=== PATIENT | male | born 1990 | race Two or more races ===

== ENCOUNTER 2017-08-07 11:48 | Inpatient (IN) | payer OTHER ==
[~2017-08-07] VITALS: Ht 165.1 cm; Wt 90.7 kg
--- NOTE | ~2017-08-07 | CR72 ---
[facility] A Service of [facility] RADIOLOGY TEXT RESULTS PATIENT: TOBI BROWN LOCATION: [facility] : [birth year] UNIT #: [id number] AGE: [address]: Sandi Whitt MD SEX: M ORDER DR: [id number] [place] [id number] [facility]. [place], [place] [address] [id number] MR#: [id number] Acc #: [id number] NAME: TOBI BROWN : 1990 SEX: M STUDY DATE/TIME: 08/09/2017 8:31 UNIT: [facility] ROOM: [facility] STUDY DESCRIPTION: CR Chest Single View Portable Attending Physician: Sandi Whitt M.D. Ordering Physician: Sandi Whitt M.D. Primary Care Physician: Primary Care Physician No MEDICAL IMAGING REPORT This report is preliminary unless electronic signature is present EXAM Chest x-ray, 08/09/2017 HISTORY 27-year-old male admitted to the hospital 08/07/2017 with epigastric abdomen pain, nausea and vomiting. Acute pancreatitis. Now with some shortness of air. TECHNIQUE AP portable chest x-ray FINDINGS The examination shows shallow lung expansion with new or increasing infiltrate or atelectasis in the dependent lung bases when compared with the CT examination of 08/07/2017. Mid and upper lungs remain clear. Mild cardiomegaly. Pulmonary vascularity is normal. No visible pleural effusion. IMPRESSION Shallow lung expansion with mild infiltrate or atelectasis in the dependent posterior lung bases. Dictated by... Branden Garcia M.D. THIS IS AN ELECTRONICALLY VERIFIED REPORT Branden Garcia M.D. at 08/09/2017 3:39 PM AYALA/alfonzo TD: 08/09/2017 13:03 JOB #: [id number] MEDICAL IMAGING REPORT [facility] A Service of [facility] RADIOLOGY TEXT RESULTS PATIENT: TOBI BROWN LOCATION: [facility] 01 : [birth year] UNIT #: [id number] AGE: [address]: Sandi Whitt MD SEX: M ORDER DR: Page 1 of 1 COPY
--- NOTE | ~2017-08-07 | US6 ---
[facility] A Service of [facility] RADIOLOGY TEXT RESULTS PATIENT: TOBI BROWN LOCATION: A 221-01 : [birth year] UNIT #: [id number] AGE: [address]: Sandi Whitt MD SEX: M ORDER DR: [id number] [facility] [address] [facility]. [place], [place] [address] [id number] MR#: [id number] Acc #: [id number] NAME: TOBI BROWN : 1990 SEX: M STUDY DATE/TIME: 08/08/2017 8:56 UNIT: [facility] ROOM: [facility] STUDY DESCRIPTION: US Abdominal Limited Attending Physician: Sandi Whitt M.D. Ordering Physician: Sandi Whitt M.D. Primary Care Physician: No Primary Care Physician MEDICAL IMAGING REPORT This report is preliminary unless electronic signature is present EXAM Right upper quadrant abdominal ultrasound. INDICATIONS Generalized abdominal pain today. PROCEDURE Conde-scale and Doppler imaging of the right upper quadrant of the abdomen. COMPARISON CT from 08/07/2017. FINDINGS Pancreas is obscured by bowel gas and not well seen. Liver shows diffusely increased echotexture. Trace amount of perihepatic ascites. Unremarkable gallbladder. Common duct measures 5 mm. Right kidney measures 11.3 cm. Common duct measures up to 10 mm. IMPRESSION 1. Hepatic steatosis. Trace amount of perihepatic fluid. 2. The pancreas is not well seen on the study. 3. Common duct is prominent for the patient's age. This is not as noticeable on the CT from the previous day and may be artifactually elevated. Correlate with laboratory values. If there is concern, MRCP or ERCP may be helpful. Dictated by... Feliz Fuentes M.D. THIS IS AN ELECTRONICALLY VERIFIED REPORT Feliz Fuentes M.D. at 08/09/2017 7:02 AM FERNANDO/an [facility] A Service [facility] RADIOLOGY TEXT RESULTS PATIENT: TOBI BROWN LOCATION: [facility] 221-01 : [birth year] UNIT #: [id number] AGE: [address]: Sandi Whitt MD SEX: M ORDER DR: TD: 08/08/2017 15:50 JOB #: [id number] MEDICAL IMAGING REPORT Page 1 of 1 COPY
--- NOTE | ~2017-08-07 | CT2 ---
[facility] A Service of [facility] & [facility] RADIOLOGY TEXT RESULTS PATIENT: TOBI BROWN LOCATION: C2A 221-01 : [birth year] UNIT #: [id number] AGE: [address]: Sandi Whitt MD SEX: M ORDER DR: [id number] [facility] [address] [facility]. [place], [place] [address] [id number] MR#: [id number] Acc #: [id number] NAME: TOBI BROWN : 1990 SEX: M STUDY DATE/TIME: 08/10/2017 14:41 UNIT: C2A ROOM: 221 STUDY DESCRIPTION: CT Abd and Pelv W Cont Attending Physician: Sandi Whitt M.D. Ordering Physician: Sandi Whitt M.D. Primary Care Physician: Primary Care Physician No MEDICAL IMAGING REPORT This report is preliminary unless electronic signature is present EXAM CT abdomen and pelvis with IV contrast HISTORY Epigastric pain. Pancreatitis. Symptoms for [address] abdomen and pelvis was performed with IV contrast and is compared to CT 08/07/2017. This CT exam was performed with one or more of the following radiation dose reduction techniques: automatic control, adjustment of mA and/or kV according to patient size, and iterative reconstruction. CT ABDOMEN: New small bilateral pleural effusions and kuoo-yl-pftzsxzw atelectasis in the lung bases bilaterally. Diffuse fatty infiltration of the liver. Increased moderate to moderately extensive peripancreatic stranding and increased small amount of ascites in the abdomen bilaterally. New fluid collection along the left lateral margin of the stomach, measuring close to 10 cm x 4.5 cm. Hypoenhancing pancreatic parenchyma in the distal pancreatic body and neck, more conspicuous than on the prior study, likely pancreatic necrosis. Findings are characteristic of progressive acute pancreatitis. Increased small amount of perihepatic fluid and fluid in the pericolic gutters bilaterally. No hepatic mass. No biliary dilatation. Probable excreted contrast in the gallbladder. The spleen, kidneys, and adrenal glands are normal. Normal caliber abdominal aorta. CT PELVIS: Small amount of pelvic ascites has increased slightly since the prior study. Mild dilatation of several loops of small bowel in the right lower abdomen and right pelvis, suggesting mild ileus. Urinary bladder is normal. Prostate gland is unremarkable. IMPRESSION 1. Progressive acute pancreatitis compared to 08/07/2017. Increased STS. [facility] A Service of [facility] & [facility] RADIOLOGY TEXT RESULTS PATIENT: TOBI BROWN LOCATION: [facility] 221-01 : [birth year] UNIT #: [id number] AGE: [address]: Sandi Whitt MD SEX: M ORDER DR: peripancreatic stranding and increased fluid in the abdomen and pelvis. Probable focal pancreatic necrosis in the distal pancreatic body and neck is more conspicuous than on the prior study. No pancreatic ductal dilatation. 2. Probable partly loculated new fluid collection along the left lateral margin of the stomach measures close to 10 cm x 4.5 cm. 3. Mild dilatation of small bowel in the right lower quadrant and in the pelvis suggesting mild ileus. 4. Fatty infiltration of the liver. 5. New small bilateral pleural effusions and opdt-jw-ihowlvfn atelectasis in the inferior lower lobes bilaterally. Dictated by... Gera Calabrese M.D. THIS IS AN ELECTRONICALLY VERIFIED REPORT Gera Calabrese M.D. at 08/11/2017 10:02 PM MELISSA/aleks TD: 08/11/2017 01:47 JOB #: [id number] MEDICAL IMAGING REPORT Page 1 of 1 COPY
--- NOTE | ~2017-08-07 | HP ---
Unit #: [id number] #: [id number] Patient: TOBI TRACY [id number] [address] [place], [place] [address] [id number] I MR#: [id number] NAME: TOBI TRACY ROOM: 83334 Age: 27 Sex: M Admission Date: 08/07/2017 : 1990 Attending Physician: Sandi Whitt M.D. HISTORY AND PHYSICAL CHIEF COMPLAINT Epigastric pain. HISTORY OF PRESENT ILLNESS Mr. Tracy is a nice male 27 years old who presents to the ER for above. Patient states that he developed acute onset of epigastric pain approximately two hours prior to presentation this evening. He describes the pain is significantly sharp, stabby, throbby, and actually is worse in the epigastric region but radiates down his entire abdomen. This has been associated with several episodes of nonbloody emesis but no diarrhea. He denies any fever. He denies any similar symptoms in the past and has felt well up until today. No sick contacts. When he presented to the emergency department, patient was febrile. Examination revealed significant tenderness to palpation in the epigastric region. Blood work revealed an elevated lipase of approximately 1300 in association with some transaminitis. A CT scan of the abdomen and pelvis with moderate to severe acute pancreatitis with fluid adjacent in the duodenal region that is felt to be reactive. There is also fluid in the pancreatic head. No evidence of pseudocyst. Fatty liver and hepatomegaly were also noted. Patient was given several doses of morphine, Dilaudid, Protonix, one liter of normal saline, Reglan, and Zofran in the emergency department and is being referred for admission. He is still having a lot of abdominal pain. He is also complaining of some dysuria but denies any hematuria. He has not had any recent new sexual contacts and denies any penile discharge. PAST MEDICAL HISTORY Negative. PAST SURGICAL HISTORY Negative. HOME MEDICATIONS None. ALLERGIES No known drug allergies. FAMILY HISTORY Some joint pain but is otherwise unremarkable. SOCIAL HISTORY Patient does not smoke. He drinks alcohol only socially and states his last drink was yesterday. He works at [employer]. Unit #: [id number] #: [id number] Patient: TOBI TRACY REVIEW OF SYSTEMS Still having abdominal pain. No further nausea or vomiting. Never had any diarrhea. Denies any melena or hematochezia. Has not had any chest pain. Has not had any shortness of breath, no fever, no vision change. Is having dysuria that is new. No recent falls. No recent rashes. PHYSICAL EXAMINATION VITAL SIGNS: Temperature 97.5, blood pressure 134/85, pulse rate 84, respiratory rate 16, oxygen saturation is 97% on room air. GENERAL: The patient is awake and alert. He is oriented x3 and very pleasant. Mexican speaking only. HEENT: Pupils equally round and reactive to light bilaterally. Anicteric sclerae. No conjunctival pallor. Oropharynx with slightly dry mucous membranes. No erythema or exudate. NECK: Supple. No lymphadenopathy. No thyromegaly. No JVD. HEART: Regular rate and rhythm without any murmur, rub, or gallop. LUNGS: Clear to auscultation bilaterally. ABDOMEN: Mildly firm. It is distended. It is diffusely tender but greatest in the epigastric region without any guarding or rebound. EXTREMITIES: No cyanosis, clubbing, or edema. Pedal pulses 2/4. SKIN: Warm and moist without rash. NEUROLOGIC: Cranial nerves II-XII are intact. Sensation, strength, and deep tendon reflexes are all normal. MUSCULOSKELETAL: No significant joint abnormalities noted upon examination, i.e., no joint hypertrophy and no joint erythema. PSYCHIATRIC: Alert and oriented x3. No suicidal or homicidal ideation. DIAGNOSTIC STUDIES LABORATORY: Lab work done in the emergency department revealed a sodium of 137, potassium 3.1, chloride 101, bicarb 19, BUN 13, creatinine 0.8, glucose of 199. AST is elevated at 105, ALT 173, alkaline phosphatase 108. Last bilirubin was normal. Lipase is elevated 1288 and amylase 608. Anion gap is 17. CBC reveals a white blood cell count of 16.5, hemoglobin 18.2, platelet count of 325,000. Differential reveals 3% bands. Urinalysis has 1+ protein and 5-10 hyaline cells but is otherwise unremarkable. IMAGING: KUB reveals asymmetric density at the left lung base compared to right. CT scan of the abdomen and pelvis as noted above reveals moderate to severe acute pancreatitis in the pancreatic head and body. There was a free fluid collection noted around the head but no pancreatic pseudocyst. There was some edema surrounding the duodenum and the hepatic flexure but this was felt to be reactive. Fatty liver and hepatomegaly noted. ASSESSMENT 1. Acute pancreatitis of uncertain etiology. 2. Metabolic acidosis. 3. Hypokalemia. 4. Hyperglycemia. 5. Polycythemia. 6. Hepatic steatosis. 7. Transaminitis, likely reactive. PLAN 1. Will admit patient to inpatient status on med/surg. 2. I am going to start patient on IV fluids D5 normal saline with 20 of KCl at 150 mL/hour. Will provide morphine and Zofran and will Unit #: [id number] #: [id number] Patient: TOBI TRACY recheck lipase in the morning. I will also go ahead and check a right upper quadrant ultrasound in the morning to further rule out any sort of underlying gallbladder etiology. A fasting lipid panel in the morning as well. Calcium levels appear normal. 3. Check an alcohol level off blood in lab as well. 4. In regards to patient's metabolic acidosis, I suspect perhaps this is starvation versus alcoholic, but I am going to check a serum lactic acid, in addition to a beta hydroxybutyrate, and follow up accordingly. 5. In regards to patient's hyperglycemia, again, I am going to keep him on IV fluids containing D5, but I am going to do Accu-Cheks every six hours with associated low-dose NovoLog sliding scale and check a hemoglobin A1c off blood in lab. If sugars become too elevated, will appropriately adjust IV fluids. 6. Will replace potassium in IV fluids. Will also place patient on (1) protocol as well. 7. Will follow up LFTs in the morning, but I anticipate that these will improve. 8. Will follow up polycythemia in the morning as well. I suspect this is somewhat dehydration related. 9. Will follow up mild leukocytosis in the morning (2) I suspect this is reactive. 10. DVT and GI prophylaxis with Lovenox and Protonix. 1. Dictated by Sandi Whitt M.D. PADMA/lucila TD: 08/07/2017 20:43 JOB #: [id number] HISTORY AND PHYSICAL Page 1 of 1 X Sandi Whitt MD X HISTORY AND PHYSICAL
--- NOTE | ~2017-08-07 | TOC ---
Unit #: [id number] #: [id number] Patient: TOBI TRACY [id number] [address] [address] [id number] I MR#: [id number] NAME: TOBI TRACY ROOM: 221 Age: 27 Sex: M Admission Date: 08/07/2017 : 1990 Attending Physician: Sandi Whitt M.D. Primary Care Physician: No Primary Care Physician TRANSFER OF CARE SUMMARY PRINCIPAL DIAGNOSES 1. Systemic inflammatory response syndrome secondary to acute alcoholic pancreatitis. 2. Dyspnea secondary to severe abdominal distention. 3. Severe lactic acidosis secondary to pancreatitis, now resolved. 4. Polycythemia secondary to dehydration, now resolved. 5. Hyponatremia. 6. Probable alcoholic transaminitis, now resolved. 7. Hepatic steatosis. 8. Hyperlipidemia. 9. Moderate protein malnutrition. 10. Constipation. CONSULTANTS None. PROCEDURES IMAGING: CT scan of abdomen and pelvis with contrast on August 07, 2017 with nnthphpa-qi-gpuaek acute pancreatitis. Enhancement of the pancreas in the head and body noted. Extensive adjacent inflammatory change anteriorly and inferiorly. Inflammatory change in the duodenum and hepatitic flexure secondary to pancreatitis. Diffuse fatty infiltration of liver noted. Some areas of parenchymal sparing noted. Mild bilateral symmetric gynecomastia. Patchy densities smhp-uzfdngx-skud-right lobe. Right upper quadrant ultrasound on August 08, 2017 with hepatic steatosis. Common bile duct was prominent for age but no evidence of stones. Chest x-ray on August 09, 2017 with shallow breathing. CLINICAL HISTORY AND HOSPITAL COURSE Mr. Tracy is a nice 27-year-old male who presents to the emergency department with complaints of abdominal pain. Please refer to H and P for further details. In the emergency department he underwent CT scan revealing significant acute pancreatitis. Lipase was elevated at approximately 1,300 upon presentation. Patient was subsequently admitted. Patient was made NPO, placed on antiemetics, IV fluids and pain medication. He was soon started on clears, which he was able to tolerate and is now tolerating a full liquid diet. At time of dictation lipase is now down to 79. Workup for secondary cause of pancreatitis revealed some mild hyperlipidemia and mildly elevated triglycerides at 226. However, I doubt that this is likely source of pancreatitis. He does drink alcohol on Unit #: [id number] #: [id number] Patient: TOBI TRACY a social basis and was drinking the day prior to presentation. My clinical suspicion, given his hepatic steatosis and fatty liver, is that this is likely alcohol related, and we have discussed alcohol cessation. Plan is to increase the diet in the morning. Patient did receive aggressive IV hydration in regards to his pancreatitis. He subsequently began becoming mildly tachypneic and dyspneic. Chest x-ray was unremarkable, and he did have a mild amount of wheezing upon examination. He has been given DuoNebs and a few doses of Lasix to decrease his associated abdominal distention from his pancreatitis. This seems to be improving his symptoms, and we will continue to monitor this closely. He is currently off IV fluids. Today, patient is also mildly hyponatremic, but clinically he appears hypervolemic. Will continue with diuretics and will follow up sodium closely. Urine sodium is currently pending. I anticipate discharge within the next 24 to [address] will repeat CT scan of the abdomen and pelvis to ensure we are not missing anything in regards to his pancreatitis. Further hospital course will be dictated as an addendum. Dictated by... Sandi Whitt M.D. PADMA/sly TD: 08/13/2017 10:16 JOB #: [id number] TRANSFER OF CARE SUMMARY Page 1 of 1 X Sandi Whitt MD TRANSFER OF CARE SUMMARY
--- NOTE | ~2017-08-07 | CT2 ---
[facility] A Service of [facility] & [facility] RADIOLOGY TEXT RESULTS PATIENT: TOBI BROWN LOCATION: C2A 221-01 : [birth year] UNIT #: [id number] AGE: [address]: Sandi Whitt MD SEX: M ORDER DR: [id number] [facility] [address] [place], [place] [address] [id number] I MR#: [id number] Acc #: [id number] NAME: TOIB BROWN : 1990 SEX: M STUDY DATE/TIME: 08/07/2017 16:00 UNIT: [facility] ROOM: 221 STUDY DESCRIPTION: CT Abd and Pelv W Cont Attending Physician: Sandi Whitt M.D. Ordering Physician: Coleman Watson M.D. Primary Care Physician: Primary Care Physician No MEDICAL IMAGING REPORT This report is preliminary unless electronic signature is present EXAM CT abdomen and pelvis 08/07/2017 HISTORY Abdomen pain epigastric area with nausea and vomiting since this a.m. Right lower quadrant tenderness. Prior history of gastritis. CT abdomen and pelvis performed with 1 mL Isovue-370. Enteric contrast not administered. There is mild cardiac enlargement. Patchy densities in the bilateral lung bases probably atelectatic in nature. Components of mild pneumonitis might be considered. There is no dense airspace disease. Bilateral gynecomastia. Diffuse fatty infiltration of the liver. The liver is enlarged measuring 21.5 cm in craniocaudal extent. There is some spared hepatic parenchyma in segment 3 and along the gallbladder fossa. Gallbladder unremarkable. No gallstones, biliary obstruction or choledocholithiasis. Spleen unremarkable. Pancreas is abnormal. There is relative hypodensity in the pancreatic body and head. Inflammatory change adjacent to the pancreas, predominately along the anterior inferior aspect of the pancreatic head uncinate process and pancreatic body. There is inflammatory fat stranding and haziness. There is a small amount of fluid adjacent to the pancreatic head. Fluid tracks along the anterior pararenal fascia and into the right pericolic gutter. Fluid then tracks into the pelvis. There is fluid tracking along the left anterior pararenal fascia, left pericolic gutter and into the pelvis as well. Small volume of free fluid in the pelvis. Probably not a drainable fluid collection at this time. No organized fluid collection is seen. There is no evidence of pseudocyst or abscess at this time. The hypodensity in the pancreatic body and head, likely reflects inflammatory edema. There is some degree of enhancement remaining and I do not believe that there is hepatic necrosis. Attention at followup recommended. The adrenal glands, kidneys, ureters unremarkable. [facility] A Service of [facility] RADIOLOGY TEXT RESULTS PATIENT: TOBI BROWN LOCATION: C2A 221-01 : [birth year] UNIT #: [id number] AGE: [address]: Sandi Whitt MD SEX: M ORDER DR: CT Pelvis: No inguinal adenopathy. Urinary bladder unremarkable. No pelvic or retroperitoneal adenopathy. Distal esophagus, stomach unremarkable. Inflammatory change adjacent to the duodenum is felt secondary to the primary pancreatic process. The duodenal wall is not thickened. Remainder small bowel unremarkable. There is some fluid in the small bowel mesenteric and adjacent to the spleen. The appendix is normal. There is some inflammatory change in the right upper quadrant adjacent to the hepatic flexure of colon but again I favor this is related to the pancreatitis. Distal colon unremarkable. The vascular structures appear normal in caliber. Portal vein and its major tributaries are patent. The bony structures show no acute abnormality. IMPRESSION 1. Abnormal examination. See complete dictation above. Findings most consistent with moderate to severe acute pancreatitis. There is enhancement of the pancreas but is relatively diminished in the body and head with loss of intrapancreatic fat planes and evidence of overall edema. There is no ductal dilatation. There is extensive adjacent inflammatory change in this region extending anteriorly and inferiorly with fluid adjacent to the pancreatic head and the inferior surface of the pancreatic body extending along the bilateral anterior pararenal fascia into the bilateral pericolic gutters and vents into the pelvis. There is a small to moderate volume of free fluid in the deep pelvis probably not a drainable fluid collection. No organized appearing fluid collection is seen. No indication of abscess or pseudocyst. Cause for pancreatitis unclear. No ductal obstructing process is seen. 2. Inflammatory change adjacent to the duodenum and hepatic flexure of colon favored to be related to the pancreatitis. The duodenum itself and the hepatic flexure of colon appear intrinsically unremarkable. 3. Diffuse fatty infiltration of the liver. There are some focal areas of parenchymal sparing. No suspicious focal abnormality. Liver is enlarged at 21.5 cm craniocaudal extent. 4. Gallbladder and visualized biliary tree unremarkable. 5. Mild bilateral symmetric gynecomastia. 6. Kidneys and appendix normal. 7. Mild cardiac enlargement. 8. Patchy densities bilateral lung bases left greater than right probably atelectatic in nature. Correlate with any clinical concern for mild bibasilar pneumonitis. Dictated by... Jeff Stone M.D. THIS IS AN ELECTRONICALLY VERIFIED REPORT Jeff Stone M.D. at 08/08/2017 2:25 PM [facility] A Service of [facility] & [facility] RADIOLOGY TEXT RESULTS PATIENT: TOBI BROWN LOCATION: [place] [address] : [birth year] UNIT #: [id number] AGE: [address]: Sandi Whitt MD SEX: M ORDER DR: GREOGR/toni TD: 08/08/2017 08:22 JOB #: [id number] MEDICAL IMAGING REPORT Page 1 of 1 COPY
--- NOTE | ~2017-08-07 | CR6 ---
[facility] A Service of [facility] RADIOLOGY TEXT RESULTS PATIENT: TOBI ANTUNEZ LOCATION: C2A 221-01 : [birth year] UNIT #: [id number] AGE: [address]: Sandi Whitt MD SEX: M ORDER DR: [id number] [facility] [address] [place], [place] [address] [id number] I MR#: [id number] Acc #: [id number] NAME: TOBI ANTUNEZ. : 1990 SEX: M STUDY DATE/TIME: 08/09/2017 8:35 UNIT: [facility] ROOM: [facility] STUDY DESCRIPTION: CR Abdomen Portable Sng View Attending Physician: Sandi Whitt M.D. Ordering Physician: Sandi Whitt M.D. Primary Care Physician: Primary Care Physician No MEDICAL IMAGING REPORT This report is preliminary unless electronic signature is present EXAM AP abdomen. Date: 08/09/2017 HISTORY Abdominal pain and distension with shortness of breath today. Epigastric pain radiating to the right flank. COMPARISON CT abdomen and pelvis and AP abdomen 08/07/2017. FINDINGS Abnormally dilated and stacked small bowel loops are seen within the midline of the abdomen, which appear new since 08/07/2017 examination. There is relative paucity of gas within the large bowel. Partial small bowel obstruction cannot excluded. No pneumatosis or gross free air is identified. No acute osseous abnormalities are seen. IMPRESSION 1. Abnormally stacked dilated small bowel loops in the mid abdomen. Findings may represent changes of partial small bowel obstruction. 2. The study was originally performed 08/09/2017 at 08:35. For reasons unknown to myself, there was a delay in submission of the study. It was submitted on line for interpretation today, 08/16/2017. The interventional radiology tech acknowledges the guest service supervisor at [facility] has been notified. Dictated by... Emily Glass M.D. THIS IS AN ELECTRONICALLY VERIFIED REPORT Emily Glass M.D. at 08/17/2017 10:29 PM [facility] A Service of [facility] RADIOLOGY TEXT RESULTS PATIENT: TOBI ANTUNEZ LOCATION: A 221-01 : [birth year] UNIT #: [id number] AGE: [address]: Sandi Whitt MD SEX: M ORDER DR: GISSELLE/estrellita TD: 08/16/2017 18:06 JOB #: [id number] MEDICAL IMAGING REPORT Page 1 of 1 COPY
--- NOTE | ~2017-08-07 | CR6 ---
[facility] A Service of [facility] RADIOLOGY TEXT RESULTS PATIENT: TOBI BROWN LOCATION: [facility] : [birth year] UNIT #: [id number] AGE: [address]: Coleman Watson MD SEX: M ORDER DR: [id number] [facility] [address] [place], [place] [address] [id number] E MR#: [id number] Acc #: [id number] NAME: TOBI BROWN : 1990 SEX: M STUDY DATE/TIME: 08/07/2017 13:08 UNIT: [facility] ROOM: STUDY DESCRIPTION: CR Abdomen Portable Sng View Attending Physician: Coleman Watson M.D. Ordering Physician: Coleman Watson M.D. Primary Care Physician: No Primary Care Physician MEDICAL IMAGING REPORT This report is preliminary unless electronic signature is present EXAM KUB. HISTORY Abdominal pain onset today. Concern for perforated viscus. TECHNIQUE Single view of the abdomen was obtained. FINDINGS The bowel gas pattern is normal. There is no evidence of mechanical obstruction or free air. No suspicious soft tissue calcifications or masses are seen. There is increased density seen over the left costophrenic angle and at the left lung base. This is incompletely imaged but an infiltrate in the left lower lung field is not excluded. No definite pleural fluid is seen. IMPRESSION Asymmetric increased density at the left lung base compared to the right. An infiltrate at the left base is not excluded. The finding is nonspecific. The bowel gas pattern is normal. No evidence of free air. STAT * RESULT Dictated by... Javier Quevedo M.D. THIS IS AN ELECTRONICALLY VERIFIED REPORT Javier Quevedo M.D. at 08/07/2017 4:53 PM RLF/lisa [facility] A Service of [facility] RADIOLOGY TEXT RESULTS PATIENT: TOBI BROWN [id number] [birth year] UNIT #: [id number] AGE: [address]: Coleman Watson MD SEX: M ORDER DR: TD: 08/07/2017 13:48 JOB #: [id number] MEDICAL IMAGING REPORT Page 1 of 1 COPY
--- NOTE | ~2017-08-07 | DS ---
Unit #: [id number] #: [id number] Patient: TOBI BROWN [id number] [address] [place], [place] [address] [id number] MR#: [id number] NAME: TOBI BROWN ROOM: 221 Age: 27 Sex: M Admission Date: 08/07/2017 : 1990 Discharge Date: 08/13/2017 Attending Physician: Sandi Whitt M.D. 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 Fatty infiltration of liver noted. Bilateral pleural effusions and atelectasis noted. Moderate protein malnutrition. HOSPITAL COURSE Since the last dictation, the patient underwent CT scan of the abdomen and pelvis with results as noted above. There were concerns that perhaps he was having some significant ascites leading to his abdominal distention and shortness of breath, but attempts at paracentesis were unsuccessful because there was not enough fluid present. This morning, the patient is eating and having still some abdominal pain, but primarily in the lower abdomen secondary to the fluid collection. White blood cell count is mildly elevated at 13,000, but again he is tolerating a diet. Lipase this morning is still currently pending, but blood work otherwise is unremarkable with the exception of leukocytosis. Assuming his lipase is normal, I think the patient will be discharged home and will have close outpatient followup. This has all been discussed with the patient. I have also stressed no alcohol use in the future given my clinical suspicion is alcohol contributing to his pancreatitis. DISCHARGE CONDITION Stable. DISCHARGE STATUS Discharged to home. DISCHARGE MEDICATIONS Oxycodone 5 mg 1 to 2 tablets p.o. q.4 hours p.r.n. for pain, number given 30. DISCHARGE INSTRUCTIONS The patient was instructed to refrain from any further alcohol use. He can increase his diet as tolerated. FOLLOWUP The patient will follow up in [facility] this to be Unit #: [id number] #: [id number] Patient: TOIB BROWN certain he is improving. Again, he also had some hyperlipidemia, which I suspected is diet and alcohol related, and perhaps in the future, he will need addition of statin. This can be re-evaluated at this visit. Time spent on discharge today, 33 minutes. Dictated by... Sandi Whitt M.D. PADMA/melchor TD: 08/15/2017 09:08 JOB #: [id number] TRANSFER OF CARE SUMMARY Page 1 of 1 X Sandi Whitt MD X DISCHARGE SUMMARY
[2017-08-07 13:29] LABS: BASOPHIL# 0.1 X10e3 (0-0.3); BASOPHIL% 0.4 % (0-2.5); EOSINOPHIL# 0.1 X10e3 (0-0.7); EOSINOPHIL% 0.6 % (0.0-7.0); HEMATOCRIT 52.9 % (38.0-50.0); HEMOGLOBIN 18.2 gm/dL (13.0-16.0); LYMPHOCYTE# 2.8 X10e3 (1.0-3.5); LYMPHOCYTE% 16.8 % (17.0-45.0); MEAN CELL VOLUME 90.4 FL (83-96); MEAN CORPUSCULAR HEMOGLOBIN 31.1 PG (28-34); MEAN CORPUSCULAR HGB CONC 34.4 g/dL (30-36); MEAN PLATELET VOLUME 8.4 FL (6.5-11.5); MONOCYTE# 0.9 X10e3 (0-1.0); MONOCYTE% 5.5 % (3.0-12.0); NEUTROPHIL# 12.6 X10e3 (1.5-7.1); NEUTROPHIL% 76.7 % (40-75); PLATELET COUNT 325 X10e3 (140-420); RED BLOOD COUNT 5.85 X10e (3.90-5.60); RED CELL DISTRIBUTION WIDTH 13.1 % (11.0-15.5); WHITE BLOOD COUNT 16.5 X10e3 (4.0-10.5)
[2017-08-07 13:30] LABS: DIFF IND YES
[2017-08-07 13:46] LABS: ALBUMIN SERUM 4.8 g/dL (3.5-5.0); BILIRUBIN, DIRECT 0.1 mg/dL (0.0-0.2); BILIRUBIN,INDIRECT 0.6 mg/dL (0.0-0.9); BILIRUBIN,TOTAL 0.7 mg/dL (0.2-2.0); BUN/CREATININE RATIO 16.25; CALCIUM SERUM 9.8 mg/dL (8.4-10.2); CREATININE SERUM 0.8 mg/dL (0.6-1.4); GLOM FILT RATE Estimated 124.2 mL/min (>60); POTASSIUM 3.1 mmol/L (3.5-5.1); PROTEIN TOTAL SERUM 8.2 g/dL (6.0-8.3)
[2017-08-07 13:58] LABS: URINE SOURCE CLEAN CATCH
[2017-08-07 14:02] LABS: URINE APPEARANCE CLEAR; URINE BILIRUBIN NEG (NEG); URINE BLOOD NEG (NEG); URINE COLOR YELLOW; URINE GLUCOSE NEG (NEG); URINE KETONE TRACE (NEG); URINE LEUKOCYTE ESTERASE NEG (NEG); URINE NITRATE NEG (NEG); URINE PROTEIN 1+ (NEG); URINE SPECIFIC GRAVITY 1.022 (1.003-1.035); URINE UROBILINOGEN 0.2 MG/DL (NEG)
[2017-08-07 14:04] LABS: URBCS1 AUWI 0-2 /[HPF] (0-2); URINE BACTERIA AUWI NEG (NEGATIVE); URINE SQUAMOUS EPITHELIAL CELL NONE SEEN /[HPF]; UWBCS1 AUWI 0-2 (0-5)
[2017-08-07 14:09] LABS: CULTURE INDICATED? NO
[2017-08-07 15:20] LABS: ANISOCYTOSIS SL; PLATELET ESTIMATE NORMAL (NORMAL)
[2017-08-07] MEDS ORDERED: NO MEDICATIONS (17:12)
[2017-08-07 20:12] LABS: BETA HYDROXYBUTYRATE 0.25 MMOL/L (0.02-0.27)
[2017-08-07 20:13] LABS: ALCOHOL BLOOD <5 mg/dL ([, 0])
[2017-08-08 02:53] LABS: HEMATOCRIT 54.2 % (38.0-50.0); HEMOGLOBIN 18.7 gm/dL (13.0-16.0); MEAN CELL VOLUME 91.6 FL (83-96); MEAN CORPUSCULAR HEMOGLOBIN 31.6 PG (28-34); MEAN CORPUSCULAR HGB CONC 34.5 g/dL (30-36); MEAN PLATELET VOLUME 8.2 FL (6.5-11.5); RED BLOOD COUNT 5.91 X10e (3.90-5.60); RED CELL DISTRIBUTION WIDTH 13.2 % (11.0-15.5); WHITE BLOOD COUNT 13.2 X10e3 (4.0-10.5)
[2017-08-08 04:29] LABS: ALBUMIN SERUM 3.7 g/dL (3.5-5.0); BILIRUBIN,TOTAL 0.6 mg/dL (0.2-2.0); BUN/CREATININE RATIO 13.33; CALCIUM SERUM 8.6 mg/dL (8.4-10.2); CREATININE SERUM 0.9 mg/dL (0.6-1.4); GLOM FILT RATE Estimated 118.3 mL/min (>60); MAGNESIUM 1.7 mg/dL (1.6-3.0); PHOSPHOROUS 2.8 mg/dL (2.5-4.6); POTASSIUM 4.6 mmol/L (3.5-5.1); PROTEIN TOTAL SERUM 6.5 g/dL (6.0-8.3)
[2017-08-08 14:31] LABS: HEMOGLOBIN 18.3 gm/dL (13.0-16.0)
[2017-08-09 05:58] LABS: HEMATOCRIT 46.7 % (38.0-50.0); MEAN CELL VOLUME 92.4 FL (83-96); MEAN CORPUSCULAR HEMOGLOBIN 31.6 PG (28-34); MEAN CORPUSCULAR HGB CONC 34.2 g/dL (30-36); MEAN PLATELET VOLUME 8.6 FL (6.5-11.5); RED BLOOD COUNT 5.06 X10e (3.90-5.60); RED CELL DISTRIBUTION WIDTH 13.5 % (11.0-15.5); WHITE BLOOD COUNT 10.2 X10e3 (4.0-10.5)
[2017-08-09 07:16] LABS: ALBUMIN SERUM 2.9 g/dL (3.5-5.0); BILIRUBIN,TOTAL 0.9 mg/dL (0.2-2.0); BUN/CREATININE RATIO 15.71; CALCIUM SERUM 7.9 mg/dL (8.4-10.2); CREATININE SERUM 0.7 mg/dL (0.6-1.4); GLOM FILT RATE Estimated 131.2 mL/min (>60); POTASSIUM 4.6 mmol/L (3.5-5.1); PROTEIN TOTAL SERUM 5.7 g/dL (6.0-8.3)
[2017-08-10 06:10] LABS: MEAN CELL VOLUME 91.9 FL (83-96); MEAN CORPUSCULAR HEMOGLOBIN 31.4 PG (28-34); MEAN CORPUSCULAR HGB CONC 34.2 g/dL (30-36); MEAN PLATELET VOLUME 8.7 FL (6.5-11.5); RED BLOOD COUNT 4.25 X10e (3.90-5.60); RED CELL DISTRIBUTION WIDTH 13.3 % (11.0-15.5); WHITE BLOOD COUNT 9.6 X10e3 (4.0-10.5)
[2017-08-10 06:14] LABS: HEMOGLOBIN 13.3 gm/dL (13.0-16.0)
[2017-08-10 06:43] LABS: CALCIUM SERUM 7.6 mg/dL (8.4-10.2); CREATININE SERUM 0.8 mg/dL (0.6-1.4); GLOM FILT RATE Estimated 124.2 mL/min (>60); MAGNESIUM 2.1 mg/dL (1.6-3.0)
[2017-08-11 10:02] LABS: BUN/CREATININE RATIO 22.5; CALCIUM SERUM 7.9 mg/dL (8.4-10.2); CREATININE SERUM 0.4 mg/dL (0.6-1.4); GLOM FILT RATE Estimated 165.1 mL/min (>60); MAGNESIUM 2.2 mg/dL (1.6-3.0); POTASSIUM 3.3 mmol/L (3.5-5.1)
[2017-08-12 06:42] LABS: HEMATOCRIT 33.8 % (38.0-50.0); HEMOGLOBIN 11.8 gm/dL (13.0-16.0); MEAN CELL VOLUME 91.5 FL (83-96); MEAN CORPUSCULAR HEMOGLOBIN 32.1 PG (28-34); MEAN CORPUSCULAR HGB CONC 35.1 g/dL (30-36); MEAN PLATELET VOLUME 8.5 FL (6.5-11.5); RED BLOOD COUNT 3.69 X10e (3.90-5.60); RED CELL DISTRIBUTION WIDTH 13.3 % (11.0-15.5); WHITE BLOOD COUNT 11.3 X10e3 (4.0-10.5)
[2017-08-12 07:25] LABS: ALBUMIN SERUM 2.6 g/dL (3.5-5.0); BILIRUBIN, DIRECT 0.9 mg/dL (0.0-0.2); BILIRUBIN,INDIRECT 0.3 mg/dL (0.0-0.9); BILIRUBIN,TOTAL 1.2 mg/dL (0.2-2.0); CALCIUM SERUM 8.1 mg/dL (8.4-10.2); CREATININE SERUM 0.6 mg/dL (0.6-1.4); GLOM FILT RATE Estimated 139.8 mL/min (>60); MAGNESIUM 2.3 mg/dL (1.6-3.0); PROTEIN TOTAL SERUM 5.7 g/dL (6.0-8.3)
[2017-08-12 11:29] LABS: PROTHROMBIN TIME (PATIENT) 10.7 SECONDS (10.0-11.7)
[2017-08-13 07:34] LABS: HEMATOCRIT 33.4 % (38.0-50.0); HEMOGLOBIN 11.4 gm/dL (13.0-16.0); MEAN CELL VOLUME 90.9 FL (83-96); MEAN CORPUSCULAR HGB CONC 34.1 g/dL (30-36); MEAN PLATELET VOLUME 8.3 FL (6.5-11.5); RED BLOOD COUNT 3.68 X10e (3.90-5.60); RED CELL DISTRIBUTION WIDTH 13.3 % (11.0-15.5); WHITE BLOOD COUNT 13.5 X10e3 (4.0-10.5)
[2017-08-13 08:48] LABS: ALBUMIN SERUM 2.5 g/dL (3.5-5.0); BILIRUBIN, DIRECT 0.5 mg/dL (0.0-0.2); BILIRUBIN,INDIRECT 0.5 mg/dL (0.0-0.9); CALCIUM SERUM 8.2 mg/dL (8.4-10.2); CREATININE SERUM 0.6 mg/dL (0.6-1.4); GLOM FILT RATE Estimated 139.8 mL/min (>60); MAGNESIUM 2.2 mg/dL (1.6-3.0); POTASSIUM 4.1 mmol/L (3.5-5.1); PROTEIN TOTAL SERUM 5.5 g/dL (6.0-8.3)
[2017-08-13] MEDS ORDERED: OXYCODONE HCL5 M1 PO (09:47)
== END 2017-08-13 13:44 | disposition home or self-care (01) | DRG 439 ==
LOC: CED 11:48 → CEDOF 19:00 → CED 19:46 → C2A 20:30 → CEDOF 20:30 → C2A 08-13 13:44
PROVIDERS: Emergency Medicine; Family Medicine; Internal Medicine; Radiology Diagnostic Radiology
DX: K85.20 Alcohol induced acute pancreatitis without necrosis or infection (principal); R18.8 Other ascites; J90 Pleural effusion, not elsewhere classified; E87.2 Acidosis; R65.10 Systemic inflammatory response syndrome (SIRS) of non-infectious origin without acute organ dysfunction; E44.0 Moderate protein-calorie malnutrition; D75.1 Secondary polycythemia; E87.1 Hypo-osmolality and hyponatremia; R73.9 Hyperglycemia, unspecified; E87.6 Hypokalemia; K76.0 Fatty (change of) liver, not elsewhere classified; E78.5 Hyperlipidemia, unspecified; R74.0 Nonspecific elevation of levels of transaminase and lactic acid dehydrogenase [LDH]; R06.00 Dyspnea, unspecified; Z68.33 Body mass index [BMI] 33.0-33.9, adult
CPT/HCPCS: 36415; 71010; 74000; 74177; 76705; 80048; 80053; 80061; 80076; 81003; 82010; 82150; 82947; 83036; 83605; 83690; 83735; 84100; 84132; 84300; 84443; 85014; 85018; 85025; 85027; 85610; 85730; 94640; 94760; 96361; 96374; 96375; 96376; 99285; C9113; G0480; J1170; J1650; J1815; J1940; J2270; J2405; J2765; J3475; Q9967